=== PATIENT | female | born 1995 | race Two or more races ===

== ENCOUNTER 2016-11-02 11:39 | Emergency (ER) | payer OTHER ==
[2016-11-02 12:38] VITALS: BP 109/75
--- NOTE | 2016-11-02 13:07 | UC ---
Pediatric GI/ HPI - History Of Current Complaint Chief Complaint: UCGU Stated Complaint: URINARY ISSUE - Allergies/Home Medications Allergies/Adverse Reactions: Allergies Allergy/AdvReac Type Severity Reaction Status Date / Time Penicillins AdvReac Intermediate Rash Verified 03/14/14 09:20 Past Medical History Respiratory History: No: Asthma Chronic Illness History: No: Diabetes - Immunization History Date of Influenza Vaccine: none Date of Pneumonia Vaccine: none Physical Exam Vital Signs: Initial Vital Signs Temp 98.4 F 11/02/16 12:34 Pulse 68 11/02/16 12:34 Resp 16 11/02/16 12:34 BP 109/75 11/02/16 12:34 Pulse Ox 100 11/02/16 12:34
--- NOTE | 2016-11-02 13:08 | UC ---
Complaint Female HPI - HPI Summary HPI Summary: 21 yo female with intermeittent dysuria /urgency /frequency x 3 weeks some hematuria no f/c no n/v no back or abd pain no vag d/c or itch - History Of Current Complaint Chief Complaint: UCGU Stated Complaint: URINARY ISSUE Hx Obtained From: Patient Hx Last Menstrual Period: 10/13/16 Onset/Duration: Sudden Onset, Lasting Weeks Timing: Intermittent Severity Initially: Mild Severity Currently: Mild Pain Intensity: 0 - only hurts with urination Pain Scale Used: 0-10 Numeric Character: Burning Aggravating Factor(s): Urination Alleviating Factor(s): Nothing Associated Signs And Symptoms: Negative: Fever, Back Pain, Vaginal Bleeding/ Discharge, Vaginal Discharge - Allergies/Home Medications Allergies/Adverse Reactions: Allergies Allergy/AdvReac Type Severity Reaction Status Date / Time Penicillins AdvReac Intermediate Rash Verified 03/14/14 09:20 PMH/Surg Hx/FS Hx/Imm Hx Previously Healthy: Yes Endocrine History Of: Denies: Diabetes, Thyroid Disease Cardiovascular History Of: Denies: Cardiac Disorders, Hypertension Respiratory History Of: Denies: COPD, Asthma GI/ History Of: Denies: Ulcer - Surgical History Surgical History: None - Family History Known Family History: Negative: Cardiac Disease, Hypertension, Diabetes - Social History Alcohol Use: None Substance Use Type: None Smoking Status (MU): Never Smoked Tobacco Review of Systems Constitutional: Negative Skin: Negative Eyes: Negative ENT: Negative Respiratory: Negative Cardiovascular: Negative Gastrointestinal: Negative Genitourinary: Dysuria, Frequency, Urgency Motor: Negative Neurovascular: Negative Musculoskeletal: Negative Neurological: Negative Psychological: Negative All Other Systems Reviewed And Are Negative: Yes Physical Exam Triage Information Reviewed: Yes Appearance: Well-Appearing, No Pain Distress, Well-Nourished Vital Signs: Initial Vital Signs Temp 98.4 F 11/02/16 12:34 Pulse 68 11/02/16 12:34 Resp 16 11/02/16 12:34 BP 109/75 11/02/16 12:34 Pulse Ox 100 11/02/16 12:34 Vital Signs Reviewed: Yes Eyes: Positive: Conjunctiva Clear ENT: Positive: Hearing grossly normal. Negative: Nasal congestion, Nasal drainage, Trismus, Muffled/hoarse voice Dental: Negative: Gross Decay/Caries @, Dental Fracture @ Neck: Positive: Supple, Nontender Respiratory: Positive: Lungs clear, Normal breath sounds, No respiratory distress Cardiovascular: Positive: RRR, No Murmur, Pulses Normal. Negative: Tachycardia , Bradycardia Abdomen Description: Positive: Nontender, No Organomegaly. Negative: CVA Tenderness (R), CVA Tenderness (L) Musculoskeletal: Positive: ROM Intact, No Edema Neurological: Positive: Alert Psychological Exam: Normal Skin Exam: Normal Complaint Female Dx - Differential Dx/Diagnosis Provider Diagnoses: acute cystitis Discharge - Discharge Plan Condition: Stable Disposition: HOME Prescriptions: Nitrofurantoin Monohyd Macro [Macrobid] 100 mg PO BID #14 cap Phenazopyridine TAB* [Pyridium TAB*] 100 mg PO TID #6 tab Patient Education Materials: Urinary Tract Infection in Women (ED) Referrals: [facility]CEDES Mendoza [Primary Care Provider] - Additional Instructions: recheck in 3-4 days if not better urine culture pending
== END 2016-11-02 13:52 | disposition home or self-care (01) ==
LOC: UCEAST 11:39
DX: N30.01 Acute cystitis with hematuria (principal); Z88.0 Allergy status to penicillin; Z32.02 Encounter for pregnancy test, result negative
CPT/HCPCS: 81002; 81025; 87077; 87086; 87186; 99212; G0463

== ENCOUNTER 2016-11-04 18:14 | Emergency (ER) | payer OTHER ==
[2016-11-04 19:18] VITALS: BP 110/69
--- NOTE | 2016-11-04 19:53 | UC ---
Complaint Female HPI - HPI Summary HPI Summary: 21 y/o female c/o right constant flank pain, described as an ache. Patient woke up with pain this morning, worsened with truncal movements, and heavy lifting. - History Of Current Complaint Chief Complaint: UCBackPain Stated Complaint: BACK PAIN Hx Obtained From: Patient Hx Last Menstrual Period: 10/13/16 ?: No Onset/Duration: Sudden Onset Timing: Constant Severity Initially: Mild Severity Currently: Mild Pain Intensity: 3 Pain Scale Used: 0-10 Numeric Character: Dull Aggravating Factor(s): Movement Associated Signs And Symptoms: Positive: Back Pain. Negative: Fever, Nausea, Vomiting(# Of Episodes =) - Risk Factors Ectopic Risk Factor: Negative Ovarian Torsion Risk Factor: Negative - Allergies/Home Medications Allergies/Adverse Reactions: Allergies Allergy/AdvReac Type Severity Reaction Status Date / Time Penicillins AdvReac Intermediate Rash Verified 11/04/16 19:18 PMH/Surg Hx/FS Hx/Imm Hx Endocrine History Of: Denies: Diabetes, Thyroid Disease Cardiovascular History Of: Denies: Cardiac Disorders, Hypertension Respiratory History Of: Denies: COPD, Asthma GI/ History Of: Denies: Ulcer - Surgical History Surgical History: None - Family History Known Family History: Negative: Cardiac Disease, Hypertension, Diabetes - Social History Alcohol Use: None Substance Use Type: None Smoking Status (MU): Never Smoked Tobacco Review of Systems Constitutional: Negative Skin: Negative Eyes: Negative ENT: Negative Respiratory: Negative Cardiovascular: Negative Gastrointestinal: Negative Genitourinary: Negative Motor: Negative Neurovascular: Negative Musculoskeletal: Myalgia - Right flank area Neurological: Negative Psychological: Negative All Other Systems Reviewed And Are Negative: Yes Physical Exam Triage Information Reviewed: Yes Appearance: Well-Appearing, No Pain Distress, Well-Nourished Vital Signs: Initial Vital Signs Temp 97.3 F 11/04/16 19:15 Pulse 68 11/04/16 19:15 Resp 16 11/04/16 19:15 BP 110/69 11/04/16 19:15 Pulse Ox 100 11/04/16 19:15 Vital Signs Reviewed: Yes Eye Exam: Normal Eyes: Positive: Conjunctiva Clear ENT Exam: Normal ENT: Positive: Normal ENT inspection, Hearing grossly normal, Pharynx normal, TMs normal Dental Exam: Normal Neck exam: Normal Neck: Positive: Supple, Nontender, No Lymphadenopathy Respiratory: Positive: Chest non-tender, Lungs clear, Normal breath sounds, No respiratory distress Cardiovascular: Positive: RRR, No Murmur, Pulses Normal Abdomen Description: Positive: Nontender, No Organomegaly, Soft Bowel Sounds: Positive: Present Musculoskeletal Exam: Normal Musculoskeletal: Positive: Strength Intact, ROM Intact, No Edema, Other: - Tenderness around the right 8th rib, slight muscle spasm extending from the spinal column into the lateral rib cage Neurological Exam: Normal Neurological: Positive: Alert, Muscle Tone Normal Psychological Exam: Normal Skin Exam: Normal Complaint Female Dx - Differential Dx/Diagnosis Provider Diagnoses: Right sided muscloskeletal injury (8th rib). Continuing UTI Discharge - Discharge Plan Condition: Stable Disposition: HOME Patient Education Materials: Urinary Tract Infection in Women (ED) Referrals: No Primary Care Phys,NOPCP [Primary Care Provider] - [facility] [place] [facility] REFERR[facility] [Outside] Additional Instructions: As discussed, continue antibiotic course as prescribed. Seek medical care if develop hematuria, fever greater than 101F, nausea/vomiting, severe flank pain, urinary symptoms.
== END 2016-11-04 20:09 | disposition home or self-care (01) ==
LOC: UCEAST 18:14
DX: S39.002A Unspecified injury of muscle, fascia and tendon of lower back, initial encounter (principal); X50.0XXA Overexertion from strenuous movement or load, initial encounter; Y93.9 Activity, unspecified; Y92.9 Unspecified place or not applicable; N39.0 Urinary tract infection, site not specified; Z88.0 Allergy status to penicillin
CPT/HCPCS: 81002; 99211; G0463

== ENCOUNTER 2017-04-06 09:58 | Emergency (ER) | payer OTHER ==
[2017-04-06 10:20] VITALS: BP 130/57
--- NOTE | 2017-04-06 11:01 | UC ---
Complaint Female HPI - HPI Summary HPI Summary: has not sought medical care yet for the ---believes she is 12 weeks ---awoke this morning with burning with urination no fever, flank pain vaginal discharge, nausea or vomiting - History Of Current Complaint Chief Complaint: UCGU Stated Complaint: URINARY ISSUE Time Seen by Provider: 04/06/17 10:54 Hx Obtained From: Patient Hx Last Menstrual Period: 01/03/17 ?: Yes Onset/Duration: Sudden Onset, Lasting Days - 1, Still Present Timing: Constant Severity Initially: Moderate Severity Currently: Moderate Pain Intensity: 5 Pain Scale Used: 0-10 Numeric Character: Burning Aggravating Factor(s): Urination Alleviating Factor(s): Nothing Associated Signs And Symptoms: Positive: Negative Related Hx: - 1, Para - 0 - Allergies/Home Medications Allergies/Adverse Reactions: Allergies Allergy/AdvReac Type Severity Reaction Status Date / Time Penicillins Allergy Intermediate Rash Verified 04/06/17 10:20 Home Medications: Home Medications Vit W/ Docusate-Fe Fu [ 19] 1 tab PO BID 04/06/17 [History Confirmed 04/06/17] PMH/Surg Hx/FS Hx/Imm Hx Previously Healthy: Yes - Surgical History Surgical History: None - Family History Known Family History: Negative: Cardiac Disease, Hypertension, Diabetes - Social History Occupation: Employed Full-time Lives: With Family Alcohol Use: None Substance Use Type: None Smoking Status (MU): Never Smoked Tobacco Have You Smoked in the Last Year: No Review of Systems Constitutional: Negative Skin: Negative Eyes: Negative ENT: Negative Respiratory: Negative Cardiovascular: Negative Gastrointestinal: Negative Genitourinary: Dysuria, Urgency Motor: Negative Neurovascular: Negative Musculoskeletal: Negative Neurological: Negative Psychological: Negative All Other Systems Reviewed And Are Negative: Yes Physical Exam Triage Information Reviewed: Yes Appearance: Well-Appearing, No Pain Distress, Well-Nourished Vital Signs: Initial Vital Signs Temp 99.1 F 04/06/17 10:15 Pulse 76 04/06/17 10:15 Resp 16 04/06/17 10:15 BP 130/57 04/06/17 10:15 Pulse Ox 100 04/06/17 10:15 Vital Signs Reviewed: Yes Eye Exam: Normal Eyes: Positive: Conjunctiva Clear ENT Exam: Normal ENT: Positive: Normal ENT inspection, Hearing grossly normal. Negative: Nasal congestion, Nasal drainage, Trismus, Muffled/hoarse voice Dental Exam: Normal Neck exam: Normal Neck: Positive: Supple, Nontender, No Lymphadenopathy Respiratory Exam: Normal Respiratory: Positive: Chest non-tender, Lungs clear, Normal breath sounds, No respiratory distress, No accessory muscle use Cardiovascular Exam: Normal Cardiovascular: Positive: RRR, No Murmur, Pulses Normal, Brisk Capillary Refill Abdominal Exam: Normal Abdomen Description: Positive: Nontender, No Organomegaly, Soft. Negative: CVA Tenderness (R), CVA Tenderness (L) Bowel Sounds: Positive: Present Musculoskeletal Exam: Normal Musculoskeletal: Positive: Strength Intact, ROM Intact, No Edema Neurological Exam: Normal Neurological: Positive: Alert, Muscle Tone Normal Psychological Exam: Normal Skin Exam: Normal Diagnostics - Laboratory Diagnostic Studies Completed/Ordered: + blood and Leuks, urine cloudy Complaint Female Dx - Course Course Of Treatment: macrobid, increase fluids, follow with obgyn this week - Differential Dx/Diagnosis Differential Diagnosis/HQI/PQRI: Ovarian Cyst, Pelvic Inflammatory Disease, , Renal Colic, Sexually Transmitted Disease, Ureteral Stone, Urinary Tract Infection Provider Diagnoses: UTI, Discharge - Discharge Plan Condition: Stable Disposition: HOME Prescriptions: Nitrofurantoin Monohyd Macro [Macrobid] 100 mg PO BID #20 cap Patient Education Materials: Nitrofurantoin Combination (By mouth), Urinary Tract Infection in (ED) Referrals: [facility] [Provider Group] - 3 Days Additional Instructions: Follow with [facility]
== END 2017-04-06 11:30 | disposition home or self-care (01) ==
LOC: UCEAST 09:58
DX: O23.41 Unspecified infection of urinary tract in pregnancy, first trimester (principal); Z3A.12 12 weeks gestation of pregnancy
CPT/HCPCS: 81003; 84702; 87077; 87086; 87186; 99212; G0463

== ENCOUNTER 2017-04-18 19:53 | Emergency (ER) | payer OTHER ==
--- NOTE | 2017-04-18 20:11 | UC ---
Complaint Female HPI - HPI Summary HPI Summary: 22 YEAR OLD FEMALE PRESENTS TO SEE IF SHE HAS A UTI BECAUSE SHE IS GOING AWAY ON VACATION. - History Of Current Complaint Chief Complaint: UCGU Stated Complaint: burning urination Time Seen by Provider: 04/18/17 20:10 Hx Last Menstrual Period: December - Allergies/Home Medications Allergies/Adverse Reactions: Allergies Allergy/AdvReac Type Severity Reaction Status Date / Time Penicillins Allergy Intermediate Rash Verified 04/06/17 10:20 PMH/Surg Hx/FS Hx/Imm Hx Previously Healthy: Yes - Surgical History Surgical History: None - Family History Known Family History: Negative: Cardiac Disease, Hypertension, Diabetes - Social History Alcohol Use: None Substance Use Type: None Smoking Status (MU): Never Smoked Tobacco Have You Smoked in the Last Year: No Review of Systems Constitutional: Negative Skin: Negative Eyes: Negative ENT: Negative Respiratory: Negative Cardiovascular: Negative Gastrointestinal: Negative Genitourinary: Frequency, Urgency Motor: Negative Neurovascular: Negative Musculoskeletal: Negative Neurological: Negative Psychological: Negative All Other Systems Reviewed And Are Negative: Yes Physical Exam Triage Information Reviewed: Yes Eye Exam: Normal ENT Exam: Normal Dental Exam: Normal Neck exam: Normal Neck: Positive: 1 Respiratory Exam: Normal Cardiovascular Exam: Normal Abdominal Exam: Normal Musculoskeletal Exam: Normal Neurological Exam: Normal Psychological Exam: Normal Skin Exam: Normal Complaint Female Dx - Differential Dx/Diagnosis Provider Diagnoses: URINARY FREQUENCY Discharge - Discharge Plan Condition: Stable Disposition: HOME Prescriptions: Nitrofurantoin Monohyd Macro [Macrobid] 100 mg PO BID #20 cap Patient Education Materials: Urinary Tract Infection in Women (ED) Referrals: No Primary Care Phys,NOPCP [Primary Care Provider] -
== END 2017-04-18 20:29 | disposition home or self-care (01) ==
LOC: UCEAST 19:53
DX: O26.899 Other specified pregnancy related conditions, unspecified trimester (principal); R35.0 Frequency of micturition; Z3A.00 Weeks of gestation of pregnancy not specified; Z88.0 Allergy status to penicillin
CPT/HCPCS: 81003; 84702; 87086; 99212; G0463